=== PATIENT | female | born 1955 | race Caucasian/White ===

== ENCOUNTER 2016-10-14 09:36 | Emergency (ER) | payer BC, OTHER ==
[2016-10-14 09:53] VITALS: BMI 31.8
--- NOTE | 2016-10-14 10:33 | PDOC ---
History of Present Illness - General Chief Complaint: Blood Pressure Problem Stated Complaint: ANXIETY History Source: Patient Exam Limitations: Language Barrier - History of Present Illness Initial Comments: 10/14/16 10:56 61y F hx of depression, ACS presents for evaluation. The patient found her this morning after a hanging. she called [facility] and police called EMS. The pt states she just wants to go home to be with her . The pt has limited indonesian speaking capability, history taken with aid of [employer] [id number] in georgian. The pt denies any complaints of pain or discomfort, but states her throat feels dry and she had some tingling in her toes b/l. Pt denies any chest pain, sob, fever/chills, headache, dizziness, abd pain, n/v, neck pain, back pain. Pt does endorse stating she wants to kill herself as she is very sad. Pt does endorse a history of depression and SI n the past. She does not know th ename of her doctor, but asks us to wait for her daugther to come to ask her. Past History - Past Medical History Allergies/Adverse Reactions: Allergies Allergy/AdvReac Type Severity Reaction Status Date / Time No Known Allergies Allergy Verified 10/14/16 09:49 Home Medications: Ambulatory Orders Aspirin [ASA -] 81 mg PO DAILY 10/14/16 Atorvastatin Ca [Lipitor] 80 mg PO HS 10/14/16 Folic Acid - 1 mg PO DAILY 10/14/16 Lisinopril 10 mg PO DAILY 10/14/16 Lorazepam [Ativan] 1 mg PO DAILY #14 tablet MDD 1 10/14/16 Metoprolol Succinate [Toprol Xl -] 50 mg PO DAILY 10/14/16 Thiamine HCl [B-1] 100 mg PO DAILY 10/14/16 Ticagrelor [Brilinta] 90 mg PO BID 10/14/16 Cancer: Yes (IA 2015) - Psycho/Social/Smoking Cessation Hx Anxiety: Yes Suicidal Ideation: No Smoking History: Never smoked Have you smoked in the past 12 months: No Information on smoking cessation initiated: No Hx Alcohol Use: No Drug/Substance Use Hx: No Substance Use Type: None Review of Systems - Review of Systems Able to Perform ROS?: Yes Comments:: 10/14/16 11:01 Constitutional - no reported Fever, Chills, HEENT: no reported vision changes, sore throat Respiratory: no reported cough, sob, hemoptysis Cardiac: no reported chest pain, palpitations, light headedness, leg swelling Abd/GI: no reported abd pain, nausea, vomiting, blood per rectum, melena, diarrhea : no reported dysuria, frequency, discharge Musculskelatal - no reported back pain, joint swelling skin - no reported bruising, erythema, rash neurological: no reported headache, numbness, focal weakness, tingling, ataxia, hematologic: no reported anemia, easy bruising, easy bleeding Psych: +deperssion/SI *Physical Exam - Vital Signs Last Vital Signs Temp Pulse Resp BP Pulse Ox 98.2 F 94 H 24 177/112 97 10/14/16 09:49 10/14/16 09:49 10/14/16 09:49 10/14/16 09:49 10/14/16 09:49 - Physical Exam Comments: 10/14/16 11:01 GENERAL: The patient is awake, alert, and fully oriented, Nontoxic - in no acute distress. HEAD: Normocephalic, atraumatic. EYES: extraocular movements intact, sclera anicteric, conjunctiva clear. ENT: Normal voice, Moist mucous membranes. NECK: Normal range of motion, supple LUNGS: Breath sounds equal, clear to auscultation bilaterally. No wheezes, no rhonchi, no rales. HEART: Regular rate and rhythm, normal S1 and S2 without murmur, rub or gallop. ABDOMEN: Soft, nontender, normoactive bowel sounds. No guarding, no rebound. . No CVA tenderness EXTREMITIES: Normal range of motion, no edema. No clubbing or cyanosis. No cords, erythema, or tenderness. NEUROLOGICAL: No facial assymetry, Normal speech, PSYCH: flat affect, tearful affect SKIN: Warm, Dry, normal turgor, Heart Score/ECG Review - ECG Impressions Comment:: 10/14/16 11:01 Twelve-lead EKG was performed and reviewed by me. There is normal sinus rhythm with a normal rate. Rate of 83 The intervals are normal. abnormal r wave prgoression There are no ST or T wave abnormalities. n oprior ekgs for comparison ED Treatment Course - LABORATORY CBC & Chemistry Diagram: 10/14/16 10:00 10/14/16 10:00 Medical Decision Making - Medical Decision Making 10/14/16 11:02 Pt here for SI in setting o fhusband hanging himself this morning pt noted hypertensive unclera what her basline meds are will obtain psych consult 1:1 consult 10/14/16 13:[address] psych dr[address] villanueva requests 1mg ativan daily no recent psych history and dr. villanueva feels tihs is likely greiving/stress response and not true si will dc with pmd fu pts daugthers are with the pt and will be with the pt for the next few days return precautions were discussed I discussed the physical exam findings, ancillary test results and final diagnoses with the patient. I answered all of the patient's questions. The patient was satisfied with the care received and felt comfortable with the discharge plan and treatment plan. The patient will call their primary care physician within 24 hours to arrange follow-up and will return to the Emergency Department with any new, persistent or worsening symptoms. *DC/Admit/Observation/Transfer Diagnosis at time of Disposition: Grief reaction Hypertension Qualifiers: Hypertension type: essential hypertension Qualified Code(s): I10 - Essential ( primary) hypertension - Discharge Dispostion Disposition: HOME Condition at time of disposition: Improved Admit: No - Prescriptions Prescriptions: Lorazepam [Ativan] 1 mg PO DAILY #14 tablet MDD 1 - Referrals Referrals: Don Villanueva MD [Staff Physician] - - Patient Instructions Printed Discharge Instructions: DI for High Blood Pressure Additional Instructions: Return to the emergency department immediately with ANY new, persistent or worsening symptoms including any thoughts of wanting to harm yourself or others. Your blood pressure was a bit high I suspect this may be a stress response. Continue takeing your medications as prescribed. Take the medications prescribed for any anxiety. You MUST call and follow up with your doctor in 4-5 days for further evaluation of your symptoms. Results were discussed with you. Please make sure your doctor reviews the results of your emergency evaluation. Print Language: BERMUDIAN
[2016-10-14 10:40] LABS: BASOPHIL 0.9 % (0-2.0); EOSINOPHIL 2.2 % (0-4.5); MCH 30.7 pg (25.7-33.7); MCHC 33.3 g/dl (32.0-36.0); MEAN CELL VOLUME 92.5 fl (80-96); MEAN PLT VOLUME 8.7 fl (7.5-11.1); NEUTROPHILS 60.3 % (42.8-82.8); PLATELET COUNT 207 K/MM3 (134-434); RDW 13.2 % (11.6-15.6); WHITE BLOOD COUNT 5.6 K/mm3 (4.0-10.0)
[2016-10-14 11:13] LABS: ALBUMIN 4.4 g/dl (3.4-5.0); ANION GAP 9 (8-16); CALCIUM 10.2 mg/dL (8.5-10.1); CO2 25 mmol/L (21-32); CREATININE 0.9 mg/dL (0.55-1.02); GLUCOSE,RANDOM 91 mg/dL (74-106); SGOT/AST 29 U/L (15-37); SGPT/ALT 29 U/L (12-78)
[2016-10-14 11:15] LABS: ALK PHOS 128 U/L (45-117); BILIRUBIN,TOTAL 0.5 mg/dL (0.2-1.0); TOT PROT 8.6 g/dl (6.4-8.2)
[2016-10-14 11:23] LABS: CPK 91 IU/L (26-192)
[2016-10-14 11:24] LABS: TROPONIN I < 0.02 ng/ml (0.00-0.05)
[2016-10-14] MEDS ORDERED: ACETAMINOPHEN 325 MG TABLET (FP) PO ONE (11:33)
[2016-10-14] MEDS ORDERED: ACETAMINOPHEN 325 MG TABLET (FP) ONE (11:40)
[2016-10-14] MEDS ORDERED: LORazepam 1 MG TABLET PO ONE (12:01)
--- NOTE | 2016-10-14 12:01 | CON.PSY ---
Psychiatry Consult Chief Complaint: Patients hung himself this am. Patient found him. Very upset. spoke to patient with two daughters in attendance. Patient has no historyu of any previous suicidal behaviour. Symptoms: reports: Depressed Mood - Previous Psychiatric Treatment Outpatient: None Inpatient: None - Previous Substance Abuse Treatment Outpatient: None Inpatient: None - Allergies Allergies: Allergies Allergy/AdvReac Type Severity Reaction Status Date / Time No Known Allergies Allergy Verified 10/14/16 09:49 - Current Living Status Usual Living Arrangement: With Spouse - Current Mental Status Evaluation Appearance: Well Groomed Attitude: Cooperative - Affect Affect: Constrictive Appropriateness: Appropriate to Content - Mood Mood: Depressed - Speech/Language Expressive: Coherent - Psychomotor Activity Psychomotor Activity: Normal - Thought Process Thought Process: Intact - Thought Content Hallucinations: Absent Delusions: Absent - Self Perception Self Perception: No Impairment - Cognition Attention: Alert Orientation: Time Memory, Immediate Recall: Intact Memory, Short Term: 2/3 Memory, Remote with Promptin/3 - Concentration Serial Sevens Intact: No Simple Calculations Intact: No - Abstraction Proverb Interpretation: Intact Judgement: Intact - Insight Insight: Intact - Impulse Control Impulse Control: Good Control - Suicidal Ideation Suicidal Ideation: No - Homicidal Ideation Homicidal Ideation: No Assessment/Plan 1) discharge Patient in care of Daughters. 2) ativan 1mg po od PRN. 3) family will get a [place] Korean Speaking Therapist for grief counselling.
[2016-10-14] MEDS ORDERED: LORazepam 0.5 MG TABLET ONE (12:23)
[2016-10-14 13:45] VITALS: BP 153/102; PULSE 79; TEMP 98
--- NOTE | 2016-10-15 11:31 | EKG ---
Test Reason : Blood Pressure : / mmHG Vent. 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
== END 2016-10-14 13:58 | disposition home or self-care (01) ==
LOC: JER 09:36
DX: F43.21 Adjustment disorder with depressed mood (principal); I10 Essential (primary) hypertension
CPT/HCPCS: 36415; 80053; 84484; 85025; 93005; 93010; 99285-25

== ENCOUNTER 2022-09-05 15:31 | Inpatient (IN) | payer OTHER ==
[2022-09-05] MEDS ORDERED: SODIUM CHLORIDE 0.9% 500 ML INFUS.BAG IV ONE (15:49)
[2022-09-05 16:13] LABS: HEMATOCRIT 21.3 % (32.4-45.2); HEMOGLOBIN 7.1 G/dL (10.7-15.3); MCH 28.4 pg (25.7-33.7); MCHC 33.2 g/dl (32.0-36.0); MEAN CELL VOLUME 85.5 fl (80-96); MEAN PLT VOLUME 7.3 fl (7.5-11.1); PLATELET COUNT 356.9 10^3/uL (134-434); RBC 2.49 10^6/uL (3.60-5.2); RDW 15.4 % (11.6-15.6); WHITE BLOOD COUNT 9.5 10^3/uL (4.0-10.8)
[2022-09-05 16:24] LABS: EPITHELIAL CELLS MODERATE /hpf; URINE HYALINE CAST 0-2 /lpf
[2022-09-05 16:29] LABS: ALBUMIN 3.4 g/dl (3.4-5.0); BILIRUBIN,TOTAL 0.5 mg/dl (0.2-1); BLOOD UREA NITROGEN 24.6 mg/dl (7-18); CREATININE 0.9 mg/dl (0.6-1.3); POTASSIUM 4.6 mmol/L (3.5-5.1); SGPT/ALT 11.4 U/L (7-52); TOT PROT 6.7 g/dl (6.4-8.2)
[2022-09-05 17:11] LABS: PLATELET ESTIMATE ADEQUATE
[2022-09-05] MEDS ORDERED: DOCUSATE SODIUM 100 MG CAPSULE (FP) PO PRN (19:59)
[2022-09-05 20:50] LABS: BLOOD UREA NITROGEN 21.5 mg/dl (7-18); CALCIUM 8.7 mg/dl (8.5-10.1); CREATININE 0.8 mg/dl (0.6-1.3); POTASSIUM 3.9 mmol/L (3.5-5.1)
[2022-09-05 20:56] LABS: INR 1.24 (0.83-1.09); PROTHROMBIN TIME (PATIENT) 14.3 SEC (9.7-13.0)
[2022-09-05 21:14] VITALS: BMI 24.5
[2022-09-05 21:22] LABS: RETICULOCYTES 1.83 % (0.5-1.5)
[2022-09-06] MEDS: ACETAMINOPHEN 1000 MG/100 ML BAG IVPB PRN ×3 (03:08→18:01)
[2022-09-06] MEDS: DEXTROSE 5%-NORMAL SALINE 1,000 ML IV SCH (03:09)
[2022-09-06 08:56] LABS: HEMATOCRIT 29.8 % (32.4-45.2); HEMOGLOBIN 9.5 G/dL (10.7-15.3); MCH 27.5 pg (25.7-33.7); MCHC 31.9 g/dl (32.0-36.0); MEAN CELL VOLUME 86.1 fl (80-96); MEAN PLT VOLUME 7.4 fl (7.5-11.1); PLATELET COUNT 333.3 10^3/uL (134-434); RBC 3.46 10^6/uL (3.60-5.2)
[2022-09-06 10:47] LABS: BLOOD UREA NITROGEN 16.7 mg/dl (7-18); CALCIUM 8.7 mg/dl (8.5-10.1); CREATININE 0.7 mg/dl (0.6-1.3); POTASSIUM 4.3 mmol/L (3.5-5.1)
[2022-09-06] MEDS: LIDOCAINE PATCH REMOVAL MC SCH ×2 (12:18→16:35)
[2022-09-06] MEDS: traMADol HCL 50 MG TABLET PO PRN (16:38)
[2022-09-06] MEDS: ATORVASTATIN CA 80 MG TABLET (FP) PO SCH (21:21)
[2022-09-07] MEDS: morphine SULFATE 4 MG/ML VIAL IVPUSH PRN ×2 (05:43→18:19)
[2022-09-07] MEDS: LIDOCAINE 5% TOPICAL PATCH TP SCH ×2 (05:43→22:06)
[2022-09-07] MEDS: DEXTROSE 5%-NORMAL SALINE 1,000 ML IV SCH (05:58)
[2022-09-07] MEDS: traMADol HCL 50 MG TABLET PO PRN ×2 (09:37→22:20)
[2022-09-07] MEDS: HEPARIN NA (PORCINE) 5,000 UNITS/ML 1ML VIAL SQ SCH ×2 (09:39→22:06)
[2022-09-07] MEDS: LIDOCAINE PATCH REMOVAL MC SCH (10:00)
[2022-09-07 10:42] LABS: BASO % 0.2 % (0-2.0); HEMATOCRIT 27.9 % (32.4-45.2); HEMOGLOBIN 9.4 GM/dL (10.7-15.3); LYMPH % 13.7 % (8-40); MCH 28.4 pg (25.7-33.7); MCHC 33.6 g/dl (32.0-36.0); MEAN CELL VOLUME 84.5 fl (80-96); MEAN PLT VOLUME 7.1 fl (7.5-11.1); MONO % 11.2 % (3.8-10.2); NEUT % 72.9 % (42.8-82.8); PLATELET COUNT 343 10^3/uL (134-434); RDW 14.8 % (11.6-15.6); WHITE BLOOD COUNT 8.2 K/mm3 (4.0-10.0)
[2022-09-07 13:04] LABS: ALBUMIN 2.4 g/dl (3.4-5.0)
[2022-09-07 13:05] LABS: BILIRUBIN,TOTAL 0.3 mg/dL (0.2-1)
[2022-09-07 13:06] LABS: CALCIUM 8.4 mg/dL (8.5-10.1)
[2022-09-07 13:10] LABS: BLOOD UREA NITROGEN 10.5 mg/dL (7-18); CREATININE 0.6 mg/dL (0.55-1.3)
[2022-09-07 13:20] LABS: TOT PROT 6.5 g/dl (6.4-8.2)
[2022-09-07] MEDS: PANTOPRAZOLE SODIUM 40 MG in SODIUM CHLORIDE 100 ML IVPB SCH ×2 (20:37→22:06)
[2022-09-07] MEDS: ATORVASTATIN CA 80 MG TABLET (FP) PO SCH (22:06)
[2022-09-08] MEDS ORDERED: ACETAMINOPHEN 1000 MG/100 ML BAG IVPB ONE (00:07)
[2022-09-08 08:32] LABS: HEMATOCRIT 29.3 % (32.4-45.2); HEMOGLOBIN 9.4 G/dL (10.7-15.3); MCHC 31.9 g/dl (32.0-36.0); MEAN CELL VOLUME 87.7 fl (80-96); MEAN PLT VOLUME 7.4 fl (7.5-11.1); PLATELET COUNT 317.2 10^3/uL (134-434); RBC 3.34 10^6/uL (3.60-5.2); RDW 15.5 % (11.6-15.6); WHITE BLOOD COUNT 8.1 10^3/uL (4.0-10.8)
[2022-09-08 08:44] LABS: BLOOD UREA NITROGEN 8.7 mg/dl (7-18); CALCIUM 7.9 mg/dl (8.5-10.1); CREATININE 0.7 mg/dl (0.6-1.3); MAGNESIUM 1.3 mg/dL (1.8-2.4); PHOSPHOROUS 3.23 (2.5-4.9); POTASSIUM 4.9 mmol/L (3.5-5.1)
[2022-09-08] MEDS: HEPARIN NA (PORCINE) 5,000 UNITS/ML 1ML VIAL SQ SCH ×2 (09:09→21:19)
[2022-09-08] MEDS: PANTOPRAZOLE SODIUM 40 MG in SODIUM CHLORIDE 100 ML IVPB SCH (09:09)
[2022-09-08] MEDS: LIDOCAINE PATCH REMOVAL MC SCH (09:09)
[2022-09-08] MEDS: traMADol HCL 50 MG TABLET PO PRN (16:49)
[2022-09-08] MEDS: ACETAMINOPHEN 325 MG TABLET (FP) PO PRN (19:44)
[2022-09-08] MEDS: ATORVASTATIN CA 80 MG TABLET (FP) PO SCH (21:19)
[2022-09-08] MEDS: PANTOPRAZOLE SODIUM 40 MG VIAL IVPUSH SCH (21:19)
[2022-09-08] MEDS: LIDOCAINE 5% TOPICAL PATCH TP SCH (21:23)
[2022-09-09] MEDS: traMADol HCL 50 MG TABLET PO PRN ×2 (05:38→16:56)
[2022-09-09] MEDS: HEPARIN NA (PORCINE) 5,000 UNITS/ML 1ML VIAL SQ SCH (09:15)
[2022-09-09] MEDS: PANTOPRAZOLE SODIUM 40 MG VIAL IVPUSH SCH ×2 (09:15→21:47)
[2022-09-09] MEDS: GABAPENTIN 100 MG CAPSULE PO SCH (09:18)
[2022-09-09 09:45] LABS: BASO % 0.3 % (0-2.0); EOS % 3.2 % (0-4.5); HEMATOCRIT 28.5 % (32.4-45.2); HEMOGLOBIN 9.3 GM/dL (10.7-15.3); LYMPH % 10.9 % (8-40); MCH 27.6 pg (25.7-33.7); MCHC 32.5 g/dl (32.0-36.0); MEAN CELL VOLUME 84.8 fl (80-96); MEAN PLT VOLUME 7.2 fl (7.5-11.1); MONO % 10.3 % (3.8-10.2); NEUT % 75.3 % (42.8-82.8); PLATELET COUNT 312 10^3/uL (134-434); RBC 3.36 M/mm3 (3.60-5.2); RDW 15.5 % (11.6-15.6); WHITE BLOOD COUNT 7.7 K/mm3 (4.0-10.0)
[2022-09-09 09:49] LABS: BLOOD UREA NITROGEN 7.9 mg/dl (7-18); CALCIUM 8.2 mg/dl (8.5-10.1); CREATININE 0.6 mg/dl (0.6-1.3); POTASSIUM 4.2 mmol/L (3.5-5.1)
[2022-09-09] MEDS: LIDOCAINE PATCH REMOVAL MC SCH (20:07)
[2022-09-09] MEDS: LIDOCAINE 5% TOPICAL PATCH TP SCH (21:48)
[2022-09-09] MEDS: ATORVASTATIN CA 80 MG TABLET (FP) PO SCH (21:48)
[2022-09-09] MEDS: ACETAMINOPHEN 325 MG TABLET (FP) PO PRN (21:50)
[2022-09-10 08:04] LABS: INR 1.2 (0.83-1.09); PROTHROMBIN TIME (PATIENT) 13.9 SEC (9.7-13.0)
[2022-09-10 08:18] LABS: BLOOD UREA NITROGEN 7.4 mg/dl (7-18); CALCIUM 8.5 mg/dl (8.5-10.1); CREATININE 0.7 mg/dl (0.6-1.3)
[2022-09-10 09:38] LABS: BASO % 0.3 % (0-2.0); EOS % 3.3 % (0-4.5); HEMATOCRIT 28.8 % (32.4-45.2); HEMOGLOBIN 9.7 GM/dL (10.7-15.3); LYMPH % 11.2 % (8-40); MCHC 33.7 g/dl (32.0-36.0); MEAN CELL VOLUME 83.2 fl (80-96); MEAN PLT VOLUME 6.9 fl (7.5-11.1); MONO % 10.5 % (3.8-10.2); NEUT % 74.7 % (42.8-82.8); PLATELET COUNT 297 10^3/uL (134-434); RBC 3.46 M/mm3 (3.60-5.2); RDW 15.4 % (11.6-15.6); WHITE BLOOD COUNT 8.9 K/mm3 (4.0-10.0)
[2022-09-10] MEDS ORDERED: THIAMINE HCL 100 MG TABLET (FP) PO SCH (10:00)
[2022-09-10] MEDS ORDERED: ACETAMINOPHEN 325 MG TABLET (FP) ONE ×2 (10:08)
[2022-09-10] MEDS: ACETAMINOPHEN 325 MG TABLET (FP) PO PRN ×2 (10:10→21:27)
[2022-09-10] MEDS: traMADol HCL 50 MG TABLET PO PRN ×2 (10:30→20:02)
[2022-09-10] MEDS: LIDOCAINE PATCH REMOVAL MC SCH (10:30)
[2022-09-10] MEDS ORDERED: ALBUTEROL SO4 2.5/IPRATROPIUM 0.5 INH SOL 3 ML VIAL.NEB. NEB SCH (10:30)
[2022-09-10] MEDS: GABAPENTIN 100 MG CAPSULE PO SCH (10:30)
[2022-09-10] MEDS ORDERED: ALBUTEROL SO4 0.083% IH SOL 2.5 MG/3 ML VIAL.NEB. NEB ONE (10:33)
[2022-09-10] MEDS: ALBUTEROL SO4 2.5/IPRATROPIUM 0.5 INH SOL 3 ML VIAL.NEB. NEB SCH ×3 (10:42→11:23)
[2022-09-10] MEDS ORDERED: SODIUM CHLORIDE 500 ML IV ONE (13:00)
[2022-09-10] MEDS ORDERED: FENTANYL CITRATE/PF 50 MCG/ML VIAL ONE (13:10)
[2022-09-10] MEDS ORDERED: MIDAZOLAM HCL 2 MG/2 ML SINGLE DOSE VIAL ONE (13:10)
[2022-09-10] MEDS ORDERED: MIDAZOLAM HCL 2 MG/2 ML SINGLE DOSE VIAL IVPUSH ONE (13:30)
[2022-09-10] MEDS ORDERED: FENTANYL CITRATE/PF 50 MCG/ML VIAL IVPUSH ONE (13:30)
[2022-09-10] MEDS: LIDOCAINE 5% TOPICAL PATCH TP SCH (21:22)
[2022-09-10] MEDS: PANTOPRAZOLE SODIUM 40 MG VIAL IVPUSH SCH (21:24)
[2022-09-10] MEDS: ATORVASTATIN CA 80 MG TABLET (FP) PO SCH (21:24)
[2022-09-11] MEDS: PANTOPRAZOLE SODIUM 40 MG VIAL IVPUSH SCH ×2 (08:05→09:59)
[2022-09-11 08:43] LABS: HEMATOCRIT 30.9 % (32.4-45.2); HEMOGLOBIN 9.9 G/dL (10.7-15.3); MCHC 32.2 g/dl (32.0-36.0); MEAN PLT VOLUME 6.9 fl (7.5-11.1); PLATELET COUNT 275.6 10^3/uL (134-434); RBC 3.55 10^6/uL (3.60-5.2); RDW 15.7 % (11.6-15.6); WHITE BLOOD COUNT 10.2 10^3/uL (4.0-10.8)
[2022-09-11 08:56] LABS: BILIRUBIN,TOTAL 0.5 mg/dl (0.2-1); BLOOD UREA NITROGEN 8.8 mg/dl (7-18); CALCIUM 8.4 mg/dl (8.5-10.1); CREATININE 0.6 mg/dl (0.6-1.3); MAGNESIUM 1.3 mg/dL (1.8-2.4); PHOSPHOROUS 3.1 (2.5-4.9); POTASSIUM 4.7 mmol/L (3.5-5.1); SGOT/AST 23.6 U/L (15-37); SGPT/ALT 12.7 U/L (7-52); TOT PROT 6.1 g/dl (6.4-8.2)
[2022-09-11 09:29] VITALS: BP 154/77; PULSE 84; RESP 18; TEMP 98.4
[2022-09-11] MEDS: GABAPENTIN 100 MG CAPSULE PO SCH (09:59)
[2022-09-11] MEDS: LIDOCAINE PATCH REMOVAL MC SCH (10:00)
[2022-09-11] MEDS ORDERED: DOXYCYCLINE HYCLATE 100 MG CAPSULE PO ONE (12:15)
[2022-09-11] MEDS ORDERED: DOXYCYCLINE HYCLATE 100 MG CAPSULE PO SCH (18:00)
== END 2022-09-11 12:52 | disposition home or self-care (01) | DRG 803 ==
LOC: FER 15:31 → FM/S 20:16
PROVIDERS: ADMIT Internal Medicine
PROC: 30233N1 Transfusion of Nonautologous Red Blood Cells into Peripheral Vein, Percutaneous Approach (ICD-10-PCS; principal; 2022-09-05)
PROC: 07BC3ZX Excision of Pelvis Lymphatic, Percutaneous Approach, Diagnostic (ICD-10-PCS; 2022-09-10)
DX: I88.8 Other nonspecific lymphadenitis (principal); D62 Acute posthemorrhagic anemia; J98.11 Atelectasis; K92.2 Gastrointestinal hemorrhage, unspecified; I25.10 Atherosclerotic heart disease of native coronary artery without angina pectoris; I10 Essential (primary) hypertension; E78.5 Hyperlipidemia, unspecified; F39 Unspecified mood [affective] disorder; F10.10 Alcohol abuse, uncomplicated; D64.9 Anemia, unspecified; R91.8 Other nonspecific abnormal finding of lung field; F17.200 Nicotine dependence, unspecified, uncomplicated; J44.9 Chronic obstructive pulmonary disease, unspecified; Z95.5 Presence of coronary angioplasty implant and graft
CPT/HCPCS: 36415; 36430; 38505; 71045-TC-FY; 71250-TC; 74177-TC; 77012-TC; 80048; 80053; 81003; 81015; 82378; 82728; 83540; 83550; 83615; 83690; 83735; 84100; 85025; 85027; 85045; 85610; 85651; 85730; 86140; 86301; 86304; 86480; 86850; 86900; 86901; 86922; 87086; 87186; 88305-TC; 88341-TC; 93005; 93010; 93971-TC; 94640; 99285-25; J1644; P9058; Q9967